=== PATIENT | male | born 1950 | race Caucasian/White ===

== ENCOUNTER → 2017-12-11 | Outpatient (REF) | payer MEDICARE, OTHER ==
[~2017-12-11] MED LIST: ASPI-715 PO; GLUCOSAMINE; VITAMINS
== END ==
LOC: ZZSENDIN 12:00
PROVIDERS: ATTEND Family Medicine
DX: L85.8 Other specified epidermal thickening (principal)
CPT/HCPCS: 88305

== ENCOUNTER → 2019-03-19 | Outpatient (CLI) | payer MEDICARE, OTHER ==
[~2019-03-19] MED LIST changes: +ALLO-119 PO; +DOXY25TA54 PO; +IOPAMIDOL 76% 100 ML INFUS BTL 100 ML ONE; +NS(*) 0.9% 50 ML BAG 50 ML ONE; +OMEG10007; +TAMS0.4C25 PO
--- NOTE | 2019-03-19 16:05 | RADIOLOGY IMAGING REPORT ---
FACILITY: [facility] PATIENT NAME: Emily Hercules : 1950 MR: [id number] V: [id number] EXAM DATE: ORDERING PHYSICIAN: CHELSEA NICHOLSON TECHNOLOGIST: Location: [facility] Patient: Emily Hercules : 1950 Visit/Account:[id number] Date of Sevice: 03/19/2019 EXAMINATION: CT Abdomen W/O Contrast CT Abdomen W/ Contrast CT Pelvis W/O Contrast CT Pelvis W/ Contrast 03/19/2019 8:08 AM HISTORY: hematuria TECHNIQUE: CT Urogram Protocol:. A non-intravenous contrast enhanced spiral scan was obtained of the kidneys, ureters and bladder. Ad ditional enhanced CT urographic images were acquired. Contrast: 125 mL of IV Isovue 370. One of the following dose optimization techniques was utilized in the performance of this exam: Autom ated exposure control; adjustment of the mA and/or kV according to the patient's size; or use of an i terative reconstruction technique. Specific details can be referenced in the facility's radiology C T exam operational policy. COMPARISON STUDIES: none. FINDINGS: Right kidney and ureter: There is density along the renal papillae bilaterally. There is also vague calcific density which tracks along the distribution of the infundibular tibials without well-defined calculi. No defined suspicious cortical or solid urothelial mass. Left kidney and ureter: Findings of calcific density are similar on the left lobes on the right. Lef t also does have a benign-appearing ovoid 1.2 cm cortical cyst in the posterior medial upper pole. N o suspicious cortical or urothelial mass. Bladder: No bladder mass or stone. Bladder floor is elevated by the prostate. There is irregularity or trabeculation of bladder wall with mild diverticular formation. Liver / biliary: Mildly fatty liver. Tiny hypoenhancing foci presumably are incidental cysts or yolanda ngiomas. No acute biliary finding. Pancreas: negative Spleen: Incidental small inferomedial accessory splenule. Small hypodensity in the posterior spleen presumably is an incidental cyst or hemangioma. Adrenal glands: negative Retroperitoneum: negative Pelvic structures: Prostate 6.0 x 5.4 x 7.4 cm. Mildly heterogeneous enhancement without discrete prostate mass evident. Bowel / peritoneum / mesenteries: Mild diverticulosis in the colon. Small hiatal hernia. Vessels: Mild atherosclerosis. Musculoskeletal / Body wall: Small fatty umbilical hernia. Degenerative changes in the spine. Lymph node assessment: negative Lower chest: negative IMPRESSION: 1. 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 There is also faint density tracking along the infundibular tubules in the kidneys. In discussion with the technol ogist, there does not seem to be any potential of this was early misadministration of contrast before the unenhanced imaging to allow for excreted contrast density. This might potentially be calcific s edimentation or the beginnings of staghorn calculi. No apparent urothelial mass or thickening. 2. Enlarged prostate with irregular the bladder wall and diverticular formation. Report Dictated By: Ismael Gonzalez MD at 03/19/2019 3:42 PM Report E-Signed By: Ismael Gonzalez MD at 03/19/2019 3:57 PM WSN:[email or web address]
== END ==
LOC: CT 00:23
PROVIDERS: ATTEND Urology
DX: N40.0 Benign prostatic hyperplasia without lower urinary tract symptoms (principal)
CPT/HCPCS: 36415; 74178; 82565; J7050; Q9967